=== PATIENT | female | born 1945 | race Caucasian/White ===

== ENCOUNTER 2018-04-14 23:16 | Inpatient (IN) ==
[2018-04-15 01:26] LABS: Basophils % 0.5 % (0.0-0.8); Eosinophils % 0.3 % (0.00-10.9); Hemoglobin 11.7 GM/DL (12.0-16.0); Immature Granulocytes % 0.6 %; Immature Granulocytes Absolute 0.04 #; Lymphocytes # 0.8 10*3/uL (1.4-4.0); Mean Corpuscular HGB Conc 32.5 GM/DL (32-36); Mean Corpuscular Hemoglobin 30 PG (27-34); Mean Corpuscular Volume 92.3 FL (87-102); Mean Platelet Volume 11.3 FL (9.6-12.0); Monocytes # 0.6 10*3/uL (0.11-0.8); Monocytes % 9.5 % (1.7-12.7); Neutrophils # 4.9 10*3/uL (1.4-7.4); Neutrophils % 76.1 % (38.7-73.9); Platelet Count 103 T/CUMM (130-400); Red Cell Distribution Width 14.6 % (9.3-17.3); White Blood Count 6.4 T/CUMM (4-12)
[2018-04-15] MEDS ORDERED: MORPHINE 4 MG/1 ML VIAL IV STA (01:28)
[2018-04-15] MEDS ORDERED: ONDANSETRON 4 MG/2 ML VIAL IV ONE (01:28)
[2018-04-15 01:50] LABS: Albumin 2.6 G/DL (3.4-5.0); Bilirubin,Total 1.1 MG/DL (0.2-1.0); Osmolality,Calculated 272.8 MOS/KG (273-304); Potassium 3.6 MMOL/L (3.5-5.1); Total Protein 7.6 G/DL (6.4-8.3)
[2018-04-15] MEDS ORDERED: NICOTINE 21 MG/24 HR PATCH TRANSDERM PRN (02:22)
[2018-04-15] MEDS ORDERED: ACETAMINOPHEN 325 MG TABLET PO PRN (02:22)
[2018-04-15] MEDS ORDERED: diphenhydrAMINE CAP 25 MG CAPSULE PO PRN (02:22)
[2018-04-15] MEDS ORDERED: ONDANSETRON 4 MG/2 ML VIAL IV PRN ×2 (02:22→12:52)
[2018-04-15] MEDS: MORPHINE 4 MG/1 ML VIAL IV PRN ×3 (02:57→09:57)
[2018-04-15] MEDS ORDERED: ceFAZolin 1,000 MG in SYRINGE 1 EACH IV ONE (06:31)
[2018-04-15 06:54] LABS: Basophils % 0.5 % (0.0-0.8); Eosinophils % 0.3 % (0.00-10.9); Hematocrit 34.9 VOL% (35.7-47.0); Hemoglobin 11.2 GM/DL (12.0-16.0); Immature Granulocytes % 0.5 %; Immature Granulocytes Absolute 0.03 #; Lymphocytes # 0.9 10*3/uL (1.4-4.0); Lymphocytes % 14.4 % (21.3-54.2); Mean Corpuscular HGB Conc 32.1 GM/DL (32-36); Mean Corpuscular Hemoglobin 30 PG (27-34); Mean Corpuscular Volume 91.8 FL (87-102); Mean Platelet Volume 11.1 FL (9.6-12.0); Monocytes # 0.7 10*3/uL (0.11-0.8); Monocytes % 10.3 % (1.7-12.7); Neutrophils # 4.7 10*3/uL (1.4-7.4); Red Cell Distribution Width 14.6 % (9.3-17.3); White Blood Count 6.4 T/CUMM (4-12)
[2018-04-15 06:59] LABS: Platelet Count 90 T/CUMM (130-400)
[2018-04-15 07:03] LABS: INR 1.1; PT Patient Result 11.6 SECS; Partial Thromboplastin Time 27.4 SECS (0-40)
[2018-04-15 07:17] LABS: Hypochromasia 1+; Ovalocytes Slight; Platelet Estimate Decreased
[2018-04-15] MEDS ORDERED: TUBERCULIN SKIN TEST 0.1 ML SYRINGE INTRADERM ONE (11:00)
[2018-04-15] MEDS ORDERED: DEXTROSE 50% 25 GM/50 ML VIAL IV PRN (11:27)
[2018-04-15] MEDS ORDERED: GLUCAGON 1 MG VIAL IM PRN (11:27)
[2018-04-15] MEDS ORDERED: BACITRACIN OINT 0.9 GM PACK TOP ONE (11:56)
[2018-04-15] MEDS: MEPERIDINE 25 MG/1 ML VIAL IV PRN ×2 (12:30→12:40)
[2018-04-15] MEDS ORDERED: SEVOFLURANE 1 UNIT/15 MINUTE INH ONE (12:33)
[2018-04-15] MEDS ORDERED: fentaNYL 100 MCG/2 ML VIAL ONE (12:33)
[2018-04-15] MEDS ORDERED: PROPOFOL 200 MG/20 ML VIAL IV ONE (12:33)
[2018-04-15] MEDS ORDERED: PHENYLEPHRINE 10 MG/1 ML VIAL IV ONE (12:34)
[2018-04-15] MEDS ORDERED: TRANEXAMIC ACID 1,000 MG/10 ML VIAL ONE (12:34)
[2018-04-15] MEDS ORDERED: NEOSTIGMINE 10 MG/10 ML VIAL ONE (12:34)
[2018-04-15] MEDS ORDERED: ROCURONIUM 100 MG/10 ML VIAL IV ONE (12:34)
[2018-04-15] MEDS ORDERED: MEPERIDINE 25 MG/1 ML VIAL ONE ×2 (12:34→12:41)
[2018-04-15] MEDS ORDERED: GLYCOPYRROLATE 0.4 MG/2 ML VIAL ONE (12:34)
[2018-04-15] MEDS ORDERED: ONDANSETRON 4 MG/2 ML VIAL ONE (12:34)
[2018-04-15] MEDS ORDERED: PROMETHAZINE 25 MG/1 ML VIAL ONE (12:42)
[2018-04-15] MEDS ORDERED: HYDROmorphone 2 MG/1 ML VIAL ONE (12:42)
[2018-04-15] MEDS ORDERED: PROMETHAZINE INJ 25 MG in SODIUM CHLORIDE 0.9% 50 ML IV PRN (12:52)
[2018-04-15] MEDS ORDERED: HYDROmorphone 2 MG/1 ML VIAL IV PRN (12:52)
[2018-04-15] MEDS: INSULIN LISPRO 100 UNIT/ML SUBCUT SCH ×3 (13:08→21:03)
[2018-04-15] MEDS: KETOROLAC 15 MG/1 ML VIAL IV SCH ×2 (13:09→18:03)
[2018-04-15] MEDS: LACTATED RINGERS 1,000 ML IV SCH ×3 (13:09→23:20)
[2018-04-15] MEDS: ceFAZolin 1,000 MG in SYRINGE 1 EACH IV SCH (15:38)
[2018-04-15 18:29] LABS: Apearance,Urine Slightly Hazy (Clear); Bacteria,Urine Moderate /HPF (Few); Bilirubin,Urine Negative (Negative); Blood, Urine Large mg/dL (Negative); Glucose,Urine (UA) Negative (Negative); Ketones,Urine 5 mg/dL (Negative); Mucus,Urine Many /LPF (Occasional); Nitrite,Urine Positive (Negative); Protein,Urine 30 MG/DL; RBC,Urine 169 /HPF (0-4); Squamous Epithelial Cell,Urine Occasional /HPF (0-10); Urine Color Dark yellow (Yellow); Urine Specific Gravity 1.021 (1.001-1.035); WBC,Urine 40 /HPF (0-6)
[2018-04-15] MEDS: DOCUSATE SODIUM 100 MG CAPSULE PO SCH (20:58)
[2018-04-16] MEDS ORDERED: ceFAZolin 1,000 MG in SYRINGE 1 EACH IV SCH (01:00)
[2018-04-16] MEDS: KETOROLAC 15 MG/1 ML VIAL IV SCH ×2 (01:06→06:50)
[2018-04-16] MEDS: ceFAZolin 1,000 MG in SYRINGE 1 EACH IV SCH (01:09)
[2018-04-16] MEDS: LACTATED RINGERS 1,000 ML IV SCH (04:28)
[2018-04-16 06:49] LABS: Basophils % 0.4 % (0.0-0.8); Eosinophils # 0.2 10*3/uL (0.0-0.87); Eosinophils % 2.3 % (0.00-10.9); Hematocrit 32.3 VOL% (35.7-47.0); Hemoglobin 10.4 GM/DL (12.0-16.0); Immature Granulocytes % 0.6 %; Immature Granulocytes Absolute 0.04 #; Lymphocytes # 0.9 10*3/uL (1.4-4.0); Lymphocytes % 13.8 % (21.3-54.2); Mean Corpuscular HGB Conc 32.2 GM/DL (32-36); Mean Corpuscular Hemoglobin 30 PG (27-34); Mean Corpuscular Volume 92.3 FL (87-102); Mean Platelet Volume 11.7 FL (9.6-12.0); Monocytes # 0.6 10*3/uL (0.11-0.8); Monocytes % 9.3 % (1.7-12.7); Neutrophils % 73.6 % (38.7-73.9); Red Cell Distribution Width 14.8 % (9.3-17.3); White Blood Count 6.8 T/CUMM (4-12)
[2018-04-16 06:53] LABS: Platelet Count 71 T/CUMM (130-400)
[2018-04-16 07:19] LABS: Calcium 8.6 MG/DL (8.5-10.1); Osmolality,Calculated 277.5 MOS/KG (273-304); Potassium 3.6 MMOL/L (3.5-5.1)
[2018-04-16 07:38] LABS: Hypochromasia 1+; Ovalocytes Slight; Platelet Estimate Decreased
[2018-04-16] MEDS ORDERED: DEXTROSE 50% 25 GM/50 ML VIAL IV PRN (08:26)
[2018-04-16] MEDS ORDERED: GLUCAGON 1 MG VIAL IM PRN (08:26)
[2018-04-16] MEDS ORDERED: DEXTROSE 50% 25 GM/50 ML SYRINGE IV PRN (08:30)
[2018-04-16] MEDS: INSULIN LISPRO 100 UNIT/ML SUBCUT SCH ×4 (09:12→20:56)
[2018-04-16] MEDS: DOCUSATE SODIUM 100 MG CAPSULE PO SCH ×2 (09:12→20:56)
[2018-04-16] MEDS: oxyCODONE IR 5 MG TABLET PO PRN ×3 (09:52→18:01)
[2018-04-16] MEDS: metFORMIN 500 MG TABLET PO SCH (10:30)
[2018-04-16] MEDS: MORPHINE 4 MG/1 ML VIAL IV PRN (12:39)
[2018-04-17] MEDS: oxyCODONE IR 5 MG TABLET PO PRN ×3 (05:11→15:31)
[2018-04-17 05:14] LABS: Basophils % 0.4 % (0.0-0.8); Eosinophils # 0.2 10*3/uL (0.0-0.87); Eosinophils % 2.6 % (0.00-10.9); Hematocrit 31.5 VOL% (35.7-47.0); Hemoglobin 10.2 GM/DL (12.0-16.0); Immature Granulocytes % 0.9 %; Immature Granulocytes Absolute 0.06 #; Lymphocytes # 0.8 10*3/uL (1.4-4.0); Lymphocytes % 11.6 % (21.3-54.2); Mean Corpuscular HGB Conc 32.4 GM/DL (32-36); Mean Corpuscular Hemoglobin 30 PG (27-34); Mean Corpuscular Volume 92.1 FL (87-102); Mean Platelet Volume 11.9 FL (9.6-12.0); Monocytes # 0.8 10*3/uL (0.11-0.8); Monocytes % 10.9 % (1.7-12.7); Neutrophils # 5.1 10*3/uL (1.4-7.4); Neutrophils % 73.6 % (38.7-73.9); Platelet Count 70 T/CUMM (130-400); Red Blood Count 3.42 MC/CUMM (3.8-5.5); Red Cell Distribution Width 14.5 % (9.3-17.3); White Blood Count 6.9 T/CUMM (4-12)
[2018-04-17 06:04] LABS: Platelet Estimate Decreased; Polychromasia Few
[2018-04-17] MEDS: INSULIN LISPRO 100 UNIT/ML SUBCUT SCH ×4 (07:06→20:49)
[2018-04-17] MEDS: DOCUSATE SODIUM 100 MG CAPSULE PO SCH ×2 (09:23→20:17)
[2018-04-17] MEDS: MAGNESIUM HYDROXIDE SUSP 30 ML UDCUP PO PRN (09:25)
[2018-04-17] MEDS: metFORMIN 500 MG TABLET PO SCH (09:33)
[2018-04-17] MEDS: MORPHINE 4 MG/1 ML VIAL IV PRN ×2 (18:31→23:28)
[2018-04-18] MEDS: MORPHINE 4 MG/1 ML VIAL IV PRN (04:40)
[2018-04-18 06:18] LABS: Basophils % 0.4 % (0.0-0.8); Eosinophils # 0.2 10*3/uL (0.0-0.87); Eosinophils % 2.7 % (0.00-10.9); Hematocrit 32.3 VOL% (35.7-47.0); Hemoglobin 10.3 GM/DL (12.0-16.0); Immature Granulocytes % 0.5 %; Immature Granulocytes Absolute 0.03 #; Lymphocytes # 0.8 10*3/uL (1.4-4.0); Mean Corpuscular HGB Conc 31.9 GM/DL (32-36); Mean Corpuscular Hemoglobin 30 PG (27-34); Mean Corpuscular Volume 93.1 FL (87-102); Mean Platelet Volume 11.1 FL (9.6-12.0); Monocytes # 0.9 10*3/uL (0.11-0.8); Neutrophils # 3.8 10*3/uL (1.4-7.4); Neutrophils % 67.4 % (38.7-73.9); Red Blood Count 3.47 MC/CUMM (3.8-5.5); Red Cell Distribution Width 14.2 % (9.3-17.3); White Blood Count 5.7 T/CUMM (4-12)
[2018-04-18 06:26] LABS: Platelet Count 81 T/CUMM (130-400)
[2018-04-18 06:34] LABS: Hypochromasia 1+; Microcytosis Slight
[2018-04-18 06:35] LABS: Platelet Estimate Decreased
[2018-04-18 06:44] LABS: Calcium 7.9 MG/DL (8.5-10.1); Potassium 3.8 MMOL/L (3.5-5.1)
[2018-04-18] MEDS: INSULIN LISPRO 100 UNIT/ML SUBCUT SCH ×4 (07:30→20:56)
[2018-04-18] MEDS: MAGNESIUM HYDROXIDE SUSP 30 ML UDCUP PO PRN (08:49)
[2018-04-18] MEDS: metFORMIN 500 MG TABLET PO SCH (08:49)
[2018-04-18] MEDS: DOCUSATE SODIUM 100 MG CAPSULE PO SCH ×2 (08:49→22:07)
[2018-04-18] MEDS: oxyCODONE IR 5 MG TABLET PO PRN ×2 (11:51→19:50)
[2018-04-19] MEDS: INSULIN LISPRO 100 UNIT/ML SUBCUT SCH ×4 (07:12→21:28)
[2018-04-19] MEDS: oxyCODONE IR 5 MG TABLET PO PRN ×3 (08:34→18:22)
[2018-04-19] MEDS: DOCUSATE SODIUM 100 MG CAPSULE PO SCH ×2 (08:34→21:28)
[2018-04-19] MEDS: metFORMIN 500 MG TABLET PO SCH (08:34)
[2018-04-20] MEDS: oxyCODONE IR 5 MG TABLET PO PRN ×3 (02:18→12:20)
[2018-04-20] MEDS: INSULIN LISPRO 100 UNIT/ML SUBCUT SCH ×2 (07:21→11:37)
[2018-04-20] MEDS: DOCUSATE SODIUM 100 MG CAPSULE PO SCH (08:42)
[2018-04-20] MEDS: metFORMIN 500 MG TABLET PO SCH (08:42)
[2018-04-20 11:49] VITALS: BP 108/63
== END 2018-04-20 12:52 | disposition swing bed (61) | DRG 481 ==
LOC: EDBD → EDUNIT# → N.ED 23:16 → N.EDINP 04-15 02:22 → SUATTDRO 04-15 02:22 → N.3E 04-15 03:14
PROVIDERS: ADMIT Internal Medicine; ATTEND Internal Medicine

== ENCOUNTER 2018-05-03 14:38 | Inpatient (IN) ==
[2018-05-03] MEDS ORDERED: LEVOFLOXACIN INJ 750 MG in PREMIX 1 EACH IV STA (15:17)
[2018-05-03] MEDS ORDERED: PANTOPRAZOLE 40 MG VIAL IV STA (15:17)
[2018-05-03] MEDS ORDERED: SODIUM CHLORIDE 0.9% 1,000 ML IV STA (15:17)
[2018-05-03] MEDS ORDERED: ONDANSETRON 4 MG/2 ML VIAL IV STA ×2 (15:17→17:34)
[2018-05-03 15:45] LABS: Basophils % 0.1 % (0.0-0.8); Hematocrit 34.8 VOL% (35.7-47.0); Hemoglobin 10.9 GM/DL (12.0-16.0); Immature Granulocytes % 3.5 %; Immature Granulocytes Absolute 0.62 #; Lymphocytes # 0.6 10*3/uL (1.4-4.0); Lymphocytes % 3.4 % (21.3-54.2); Mean Corpuscular HGB Conc 31.3 GM/DL (32-36); Mean Corpuscular Hemoglobin 30 PG (27-34); Mean Corpuscular Volume 94.3 FL (87-102); Mean Platelet Volume 11.5 FL (9.6-12.0); Monocytes # 1.9 10*3/uL (0.11-0.8); Monocytes % 10.9 % (1.7-12.7); Neutrophils # 14.5 10*3/uL (1.4-7.4); Neutrophils % 82.1 % (38.7-73.9); Platelet Count 124 T/CUMM (130-400); Red Blood Count 3.69 MC/CUMM (3.8-5.5); Red Cell Distribution Width 15.5 % (9.3-17.3); White Blood Count 17.7 T/CUMM (4-12)
[2018-05-03 16:06] LABS: Alanine Aminotransferase 21 U/L (13-56); Albumin 2.1 G/DL (3.4-5.0); Alkaline Phosphatase 211 U/L (45-117); Amylase 15 U/L (25-115); Aspartate Amino Transferase 55 U/L (0-37); Blood Urea Nitrogen 23 MG/DL (7-18); Calcium 8.5 MG/DL (8.5-10.1); Glucose 120 MG/DL (74-106); Osmolality,Calculated 268.5 MOS/KG (273-304); Potassium 4.4 MMOL/L (3.5-5.1); Sodium 132 MMOL/L (136-145); Total Protein 7.5 G/DL (6.4-8.3); Troponin I < 0.015 NG/ML (0.00-0.045)
[2018-05-03 16:33] LABS: Lymphocytes 7 % (20-55); Segmented Neutrophils 87 % (50-85); Total Cells Counted 100
[2018-05-03 16:40] LABS: Macrocytosis 1+; Microcytosis 1+; Platelet Estimate Decreased
[2018-05-03 16:40] LABS: Apearance,Urine CLEAR (Clear); Bacteria,Urine Many /HPF (Few); Bilirubin,Urine Negative (Negative); Blood, Urine Negative (Negative); Glucose,Urine (UA) Negative (Negative); Ketones,Urine Negative (Negative); Mucus,Urine Occasional /LPF (Occasional); Nitrite,Urine Positive (Negative); Protein,Urine Negative; Squamous Epithelial Cell,Urine Occasional /HPF (0-10); Urine Specific Gravity 1.015 (1.001-1.035); WBC,Urine 4 /HPF (0-6)
[2018-05-03 16:41] LABS: Anisocytosis 1+
[2018-05-03 16:42] LABS: Urine Color Dark yellow (Yellow)
[2018-05-03] MEDS ORDERED: VANCOMYCIN INJ 1,000 MG in SODIUM CHLORIDE 0.9% 250 ML IV STA (17:26)
[2018-05-03] MEDS ORDERED: fentaNYL 100 MCG/2 ML VIAL IV STA (17:34)
[2018-05-03] MEDS ORDERED: DOCUSATE SODIUM 100 MG CAPSULE PO PRN (19:28)
[2018-05-03] MEDS: SODIUM CHLORIDE 0.9% 1,000 ML IV SCH (20:38)
[2018-05-03] MEDS: ENOXAPARIN 40 MG/0.4 ML SYRINGE SUBCUT SCH (21:19)
[2018-05-03] MEDS: ACETAMINOPHEN 325 MG TABLET PO PRN (21:49)
[2018-05-04] MEDS ORDERED: SODIUM CHLORIDE 0.9% 500 ML IV STA (01:07)
[2018-05-04] MEDS ORDERED: NOREPINEPHRINE 8 MG in SODIUM CHLORIDE 0.9% 242 ML IV PRN (02:29)
[2018-05-04] MEDS ORDERED: NOREPINEPHRINE 4 MG/4 ML VIAL IV ONE (02:34)
[2018-05-04 04:47] LABS: Basophils % 0.2 % (0.0-0.8); Hematocrit 32.4 VOL% (35.7-47.0); Hemoglobin 10.3 GM/DL (12.0-16.0); Immature Granulocytes % 5.9 %; Immature Granulocytes Absolute 1.03 #; Lymphocytes # 0.6 10*3/uL (1.4-4.0); Lymphocytes % 3.6 % (21.3-54.2); Mean Corpuscular HGB Conc 31.8 GM/DL (32-36); Mean Corpuscular Hemoglobin 30 PG (27-34); Mean Corpuscular Volume 93.9 FL (87-102); Mean Platelet Volume 11.1 FL (9.6-12.0); Monocytes # 1.8 10*3/uL (0.11-0.8); Monocytes % 10.3 % (1.7-12.7); Neutrophils # 13.9 10*3/uL (1.4-7.4); Platelet Count 121 T/CUMM (130-400); Red Blood Count 3.45 MC/CUMM (3.8-5.5); Red Cell Distribution Width 15.4 % (9.3-17.3); White Blood Count 17.4 T/CUMM (4-12)
[2018-05-04 05:10] LABS: Calcium 7.9 MG/DL (8.5-10.1); Osmolality,Calculated 270.2 MOS/KG (273-304); Potassium 4.4 MMOL/L (3.5-5.1)
[2018-05-04 05:30] LABS: Lymphocytes 7 % (20-55); Platelet Estimate Adequate; Segmented Neutrophils 89 % (50-85); Total Cells Counted 100
[2018-05-04 05:31] LABS: Polychromasia Few
[2018-05-04] MEDS ORDERED: DEXTROSE 50% 25 GM/50 ML VIAL IV STA (05:58)
[2018-05-04] MEDS ORDERED: DEXTROSE 50% 25 GM/50 ML SYRINGE IV ONE (06:00)
[2018-05-04] MEDS: ACETAMINOPHEN 325 MG TABLET PO PRN ×2 (06:20→19:55)
[2018-05-04] MEDS: SODIUM CHLORIDE 0.9% 1,000 ML IV SCH ×3 (09:27→22:07)
[2018-05-04] MEDS: PANTOPRAZOLE 40 MG TABLET PO SCH (09:27)
[2018-05-04] MEDS ORDERED: SODIUM CHLORIDE 0.9% 500 ML IV ONE (10:43)
[2018-05-04] MEDS: cefTRIAXone 1,000 MG in SYRINGE 1 EACH IV SCH (11:01)
[2018-05-04] MEDS: LEVOFLOXACIN INJ 500 MG in PREMIX 1 EACH IV SCH (16:21)
[2018-05-04] MEDS ORDERED: ONDANSETRON 4 MG/2 ML VIAL ONE (19:51)
[2018-05-04] MEDS ORDERED: METOPROLOL TARTRATE 5 MG/5 ML VIAL IV ONE (19:57)
[2018-05-04] MEDS: ONDANSETRON 4 MG/2 ML VIAL IV PRN (20:21)
[2018-05-04] MEDS: ENOXAPARIN 40 MG/0.4 ML SYRINGE SUBCUT SCH (22:11)
[2018-05-05] MEDS: ACETAMINOPHEN 325 MG TABLET PO PRN (01:05)
[2018-05-05 04:36] LABS: Basophils % 0.2 % (0.0-0.8); Hematocrit 30.3 VOL% (35.7-47.0); Hemoglobin 9.6 GM/DL (12.0-16.0); Immature Granulocytes % 5.3 %; Immature Granulocytes Absolute 0.88 #; Lymphocytes # 0.6 10*3/uL (1.4-4.0); Lymphocytes % 3.4 % (21.3-54.2); Mean Corpuscular HGB Conc 31.7 GM/DL (32-36); Mean Corpuscular Hemoglobin 30 PG (27-34); Mean Corpuscular Volume 93.5 FL (87-102); Mean Platelet Volume 10.6 FL (9.6-12.0); Monocytes # 1.9 10*3/uL (0.11-0.8); Monocytes % 11.5 % (1.7-12.7); Neutrophils # 13.2 10*3/uL (1.4-7.4); Neutrophils % 79.6 % (38.7-73.9); Platelet Count 106 T/CUMM (130-400); Red Blood Count 3.24 MC/CUMM (3.8-5.5); Red Cell Distribution Width 15.4 % (9.3-17.3); White Blood Count 16.6 T/CUMM (4-12)
[2018-05-05 04:55] LABS: Albumin 1.5 G/DL (3.4-5.0); Bilirubin,Total 2.8 MG/DL (0.2-1.0); Calcium 7.6 MG/DL (8.5-10.1); Potassium 3.9 MMOL/L (3.5-5.1)
[2018-05-05] MEDS: SODIUM CHLORIDE 0.9% 1,000 ML IV SCH (05:04)
[2018-05-05 05:10] LABS: Band Neutrophils 6 % (0-10); Hypochromasia 1+; Lymphocytes 4 % (20-55); Ovalocytes Slight; Platelet Estimate Decreased; Segmented Neutrophils 83 % (50-85); Total Cells Counted 100
[2018-05-05] MEDS ORDERED: MAGNESIUM SULF RIDER 2 GM in PREMIX 1 EACH IV PRN (08:32)
[2018-05-05] MEDS ORDERED: MAGNESIUM SULF RIDER 4 GM in PREMIX 1 EACH IV PRN (08:32)
[2018-05-05] MEDS: PANTOPRAZOLE 40 MG TABLET PO SCH (08:33)
[2018-05-05] MEDS: LACTATED RINGERS 1,000 ML IV SCH (09:14)
[2018-05-05] MEDS: CALCIUM (CARBONATE) 600 MG TABLET PO SCH (10:36)
[2018-05-05] MEDS: MULTIVITAMIN (CENTRUM) TABLET PO SCH (10:36)
[2018-05-05] MEDS: ASPIRIN 325 MG TABLET PO SCH (10:36)
[2018-05-05] MEDS: OMEGA 3 ACID ETHYL ESTERS 1 GM CAPSULE PO SCH (10:36)
[2018-05-05] MEDS: MAGNESIUM OXIDE 400 MG TABLET PO SCH (10:36)
[2018-05-05] MEDS: ASCORBIC ACID 500 MG TABLET PO SCH (10:37)
[2018-05-05] MEDS: METOPROLOL SUCCINATE XL 50 MG TABLET PO SCH (10:37)
[2018-05-05] MEDS: cefTRIAXone 1,000 MG in SYRINGE 1 EACH IV SCH (10:37)
[2018-05-05] MEDS: ONDANSETRON 4 MG/2 ML VIAL IV PRN (17:57)
[2018-05-05] MEDS: LEVOFLOXACIN INJ 500 MG in PREMIX 1 EACH IV SCH (17:58)
[2018-05-05] MEDS: ENOXAPARIN 40 MG/0.4 ML SYRINGE SUBCUT SCH (20:59)
[2018-05-06] MEDS: oxyCODONE IR 5 MG TABLET PO PRN ×3 (01:21→21:58)
[2018-05-06] MEDS: LACTATED RINGERS 1,000 ML IV SCH ×2 (01:23→22:06)
[2018-05-06] MEDS: ALBUTEROL/IPRATROPIUM 3 ML NEB RESP TX PRN (01:53)
[2018-05-06 04:46] LABS: Basophils # 0.1 10*3/uL (0.0-0.2); Basophils % 0.3 % (0.0-0.8); Eosinophils # 0.1 10*3/uL (0.0-0.87); Eosinophils % 0.5 % (0.00-10.9); Hemoglobin 10.3 GM/DL (12.0-16.0); Immature Granulocytes % 0.7 %; Immature Granulocytes Absolute 0.12 #; Lymphocytes # 0.8 10*3/uL (1.4-4.0); Lymphocytes % 4.4 % (21.3-54.2); Mean Corpuscular HGB Conc 32.2 GM/DL (32-36); Mean Corpuscular Hemoglobin 30 PG (27-34); Mean Corpuscular Volume 92.5 FL (87-102); Mean Platelet Volume 11.7 FL (9.6-12.0); Monocytes # 1.7 10*3/uL (0.11-0.8); Monocytes % 9.9 % (1.7-12.7); Neutrophils # 14.4 10*3/uL (1.4-7.4); Neutrophils % 84.2 % (38.7-73.9); Platelet Count 128 T/CUMM (130-400); Red Blood Count 3.46 MC/CUMM (3.8-5.5); Red Cell Distribution Width 15.5 % (9.3-17.3); White Blood Count 17.1 T/CUMM (4-12)
[2018-05-06 05:05] LABS: Albumin 1.4 G/DL (3.4-5.0); Calcium 8.2 MG/DL (8.5-10.1); Osmolality,Calculated 272.2 MOS/KG (273-304); Potassium 4.6 MMOL/L (3.5-5.1); Total Protein 6.1 G/DL (6.4-8.3)
[2018-05-06 05:13] LABS: Band Neutrophils 5 % (0-10); Eosinophils 1 % (0-10); Hypochromasia 1+; Lymphocytes 6 % (20-55); Ovalocytes Slight; Segmented Neutrophils 80 % (50-85); Total Cells Counted 100
[2018-05-06] MEDS: PANTOPRAZOLE 20 MG TABLET PO SCH (06:21)
[2018-05-06] MEDS: LEVOTHYROXINE 100 MCG TABLET PO SCH (06:21)
[2018-05-06] MEDS: PIPERACILLIN/TAZOBACTAM 3,375 MG in SODIUM CHLORIDE 0.9% 100 ML IV SCH ×2 (09:27→15:42)
[2018-05-06] MEDS: MAGNESIUM OXIDE 400 MG TABLET PO SCH (09:29)
[2018-05-06] MEDS: OMEGA 3 ACID ETHYL ESTERS 1 GM CAPSULE PO SCH (09:29)
[2018-05-06] MEDS: ASPIRIN 325 MG TABLET PO SCH (09:29)
[2018-05-06] MEDS: METOPROLOL SUCCINATE XL 50 MG TABLET PO SCH (09:29)
[2018-05-06] MEDS: MULTIVITAMIN (CENTRUM) TABLET PO SCH (09:29)
[2018-05-06] MEDS: CALCIUM (CARBONATE) 600 MG TABLET PO SCH (09:29)
[2018-05-06] MEDS: ASCORBIC ACID 500 MG TABLET PO SCH (09:29)
[2018-05-06] MEDS ORDERED: DEXTROSE 50% 25 GM/50 ML VIAL IV PRN (10:48)
[2018-05-06] MEDS ORDERED: GLUCAGON 1 MG VIAL IM PRN ×2 (10:48)
[2018-05-06] MEDS ORDERED: DEXTROSE 50% 25 GM/50 ML SYRINGE IV PRN (10:48)
[2018-05-06] MEDS: INSULIN REGULAR 100 UNIT/ML SUBCUT SCH ×3 (15:00→22:06)
[2018-05-06] MEDS: ENOXAPARIN 40 MG/0.4 ML SYRINGE SUBCUT SCH (21:58)
[2018-05-06] MEDS: LEVOFLOXACIN INJ 500 MG in PREMIX 1 EACH IV SCH (21:59)
[2018-05-07] MEDS: ALBUTEROL/IPRATROPIUM 3 ML NEB RESP TX PRN ×2 (00:13→08:00)
[2018-05-07] MEDS: PIPERACILLIN/TAZOBACTAM 3,375 MG in SODIUM CHLORIDE 0.9% 100 ML IV SCH ×4 (00:54→22:35)
[2018-05-07] MEDS: LACTATED RINGERS 1,000 ML IV SCH (03:19)
[2018-05-07 05:19] LABS: Basophils % 0.2 % (0.0-0.8); Eosinophils # 0.1 10*3/uL (0.0-0.87); Eosinophils % 0.4 % (0.00-10.9); Hematocrit 31.2 VOL% (35.7-47.0); Hemoglobin 9.9 GM/DL (12.0-16.0); Immature Granulocytes % 1.3 %; Immature Granulocytes Absolute 0.21 #; Lymphocytes % 6.5 % (21.3-54.2); Mean Corpuscular HGB Conc 31.7 GM/DL (32-36); Mean Corpuscular Hemoglobin 29 PG (27-34); Mean Corpuscular Volume 91.8 FL (87-102); Mean Platelet Volume 11.3 FL (9.6-12.0); Monocytes # 2.4 10*3/uL (0.11-0.8); Monocytes % 15.1 % (1.7-12.7); Neutrophils # 12.1 10*3/uL (1.4-7.4); Neutrophils % 76.5 % (38.7-73.9); Platelet Count 121 T/CUMM (130-400); Red Cell Distribution Width 15.7 % (9.3-17.3); White Blood Count 15.8 T/CUMM (4-12)
[2018-05-07 05:50] LABS: Albumin 1.3 G/DL (3.4-5.0); Bilirubin,Total 2.1 MG/DL (0.2-1.0); Calcium 8.4 MG/DL (8.5-10.1); Osmolality,Calculated 273.1 MOS/KG (273-304); Potassium 4.7 MMOL/L (3.5-5.1)
[2018-05-07] MEDS: LEVOTHYROXINE 100 MCG TABLET PO SCH (06:30)
[2018-05-07] MEDS: PANTOPRAZOLE 20 MG TABLET PO SCH (06:31)
[2018-05-07 06:39] LABS: Band Neutrophils 2 % (0-10); Eosinophils 1 % (0-10); Hypochromasia 2+; Lymphocytes 9 % (20-55); Platelet Estimate Decreased; Segmented Neutrophils 75 % (50-85); Total Cells Counted 100
[2018-05-07] MEDS: INSULIN REGULAR 100 UNIT/ML SUBCUT SCH ×4 (08:06→20:37)
[2018-05-07] MEDS: OMEGA 3 ACID ETHYL ESTERS 1 GM CAPSULE PO SCH (08:39)
[2018-05-07] MEDS: MULTIVITAMIN (CENTRUM) TABLET PO SCH (08:39)
[2018-05-07] MEDS: CALCIUM (CARBONATE) 600 MG TABLET PO SCH (08:39)
[2018-05-07] MEDS: MAGNESIUM OXIDE 400 MG TABLET PO SCH (08:39)
[2018-05-07] MEDS: ASPIRIN 325 MG TABLET PO SCH (08:39)
[2018-05-07] MEDS: ASCORBIC ACID 500 MG TABLET PO SCH (08:39)
[2018-05-07] MEDS: METOPROLOL SUCCINATE XL 50 MG TABLET PO SCH (08:42)
[2018-05-07] MEDS: ACETAMINOPHEN 325 MG TABLET PO PRN (15:50)
[2018-05-07] MEDS: LEVOFLOXACIN INJ 500 MG in PREMIX 1 EACH IV SCH (20:35)
[2018-05-07] MEDS: ENOXAPARIN 40 MG/0.4 ML SYRINGE SUBCUT SCH (20:36)
[2018-05-07] MEDS: guaiFENesin 200 MG/10 ML UDCUP PO PRN (22:34)
[2018-05-08 05:04] LABS: Basophils % 0.2 % (0.0-0.8); Eosinophils # 0.1 10*3/uL (0.0-0.87); Eosinophils % 0.5 % (0.00-10.9); Hematocrit 29.6 VOL% (35.7-47.0); Hemoglobin 9.7 GM/DL (12.0-16.0); Immature Granulocytes % 4.4 %; Immature Granulocytes Absolute 0.74 #; Lymphocytes # 1.3 10*3/uL (1.4-4.0); Lymphocytes % 7.9 % (21.3-54.2); Mean Corpuscular HGB Conc 32.8 GM/DL (32-36); Mean Corpuscular Hemoglobin 30 PG (27-34); Mean Corpuscular Volume 91.1 FL (87-102); Mean Platelet Volume 11.5 FL (9.6-12.0); Monocytes # 1.7 10*3/uL (0.11-0.8); Monocytes % 10.2 % (1.7-12.7); Neutrophils # 12.9 10*3/uL (1.4-7.4); Neutrophils % 76.8 % (38.7-73.9); Platelet Count 115 T/CUMM (130-400); Red Blood Count 3.25 MC/CUMM (3.8-5.5); Red Cell Distribution Width 15.5 % (9.3-17.3); White Blood Count 16.8 T/CUMM (4-12)
[2018-05-08 05:28] LABS: Albumin 1.2 G/DL (3.4-5.0); Bilirubin,Total 2.5 MG/DL (0.2-1.0); Calcium 8.2 MG/DL (8.5-10.1); Osmolality,Calculated 266.5 MOS/KG (273-304); Potassium 4.4 MMOL/L (3.5-5.1); Total Protein 5.9 G/DL (6.4-8.3)
[2018-05-08 06:16] LABS: Band Neutrophils 4 % (0-10); Lymphocytes 4 % (20-55); Segmented Neutrophils 79 % (50-85); Total Cells Counted 100
[2018-05-08] MEDS: LACTATED RINGERS 1,000 ML IV SCH ×3 (06:16→22:16)
[2018-05-08 06:17] LABS: Anisocytosis 1+; Hypochromasia 1+; Ovalocytes 1+; Platelet Estimate Adequate; Target Cells 1+
[2018-05-08] MEDS: LEVOTHYROXINE 100 MCG TABLET PO SCH (06:17)
[2018-05-08] MEDS: PANTOPRAZOLE 20 MG TABLET PO SCH (06:17)
[2018-05-08] MEDS: INSULIN REGULAR 100 UNIT/ML SUBCUT SCH ×4 (08:15→22:14)
[2018-05-08] MEDS: ALBUTEROL/IPRATROPIUM 3 ML NEB RESP TX PRN (09:08)
[2018-05-08] MEDS: PIPERACILLIN/TAZOBACTAM 3,375 MG in SODIUM CHLORIDE 0.9% 100 ML IV SCH ×3 (09:29→17:00)
[2018-05-08] MEDS: MAGNESIUM OXIDE 400 MG TABLET PO SCH (10:17)
[2018-05-08] MEDS: MULTIVITAMIN (CENTRUM) TABLET PO SCH (10:17)
[2018-05-08] MEDS: ASCORBIC ACID 500 MG TABLET PO SCH (10:17)
[2018-05-08] MEDS: CALCIUM (CARBONATE) 600 MG TABLET PO SCH (10:17)
[2018-05-08] MEDS: ASPIRIN 325 MG TABLET PO SCH (10:17)
[2018-05-08] MEDS: OMEGA 3 ACID ETHYL ESTERS 1 GM CAPSULE PO SCH (10:17)
[2018-05-08] MEDS: METOPROLOL SUCCINATE XL 50 MG TABLET PO SCH (10:17)
[2018-05-08] MEDS: guaiFENesin 200 MG/10 ML UDCUP PO PRN (18:25)
[2018-05-08] MEDS: ONDANSETRON 4 MG/2 ML VIAL IV PRN (20:21)
[2018-05-08] MEDS: oxyCODONE IR 5 MG TABLET PO PRN (20:21)
[2018-05-08] MEDS: LEVOFLOXACIN INJ 500 MG in PREMIX 1 EACH IV SCH (20:22)
[2018-05-08] MEDS: ENOXAPARIN 40 MG/0.4 ML SYRINGE SUBCUT SCH (20:30)
[2018-05-09] MEDS: PIPERACILLIN/TAZOBACTAM 3,375 MG in SODIUM CHLORIDE 0.9% 100 ML IV SCH ×3 (01:47→18:38)
[2018-05-09] MEDS: PANTOPRAZOLE 20 MG TABLET PO SCH (06:02)
[2018-05-09] MEDS: LEVOTHYROXINE 100 MCG TABLET PO SCH (06:03)
[2018-05-09] MEDS: INSULIN REGULAR 100 UNIT/ML SUBCUT SCH ×4 (08:41→20:39)
[2018-05-09] MEDS: ASPIRIN 325 MG TABLET PO SCH (10:05)
[2018-05-09] MEDS: CALCIUM (CARBONATE) 600 MG TABLET PO SCH (10:05)
[2018-05-09] MEDS: OMEGA 3 ACID ETHYL ESTERS 1 GM CAPSULE PO SCH (10:05)
[2018-05-09] MEDS: METOPROLOL SUCCINATE XL 50 MG TABLET PO SCH (10:05)
[2018-05-09] MEDS: MAGNESIUM OXIDE 400 MG TABLET PO SCH (10:05)
[2018-05-09] MEDS: MULTIVITAMIN (CENTRUM) TABLET PO SCH (10:05)
[2018-05-09] MEDS: ASCORBIC ACID 500 MG TABLET PO SCH (10:05)
[2018-05-09] MEDS: oxyCODONE IR 5 MG TABLET PO PRN ×3 (10:09→20:33)
[2018-05-09] MEDS: LORazepam 0.5 MG TABLET PO PRN ×2 (12:35→20:32)
[2018-05-09] MEDS: LACTATED RINGERS 1,000 ML IV SCH ×2 (18:38→23:57)
[2018-05-09] MEDS: ONDANSETRON 4 MG/2 ML VIAL IV PRN (20:32)
[2018-05-09] MEDS: ENOXAPARIN 40 MG/0.4 ML SYRINGE SUBCUT SCH (20:36)
[2018-05-09] MEDS: LEVOFLOXACIN INJ 500 MG in PREMIX 1 EACH IV SCH (23:51)
[2018-05-10] MEDS: PIPERACILLIN/TAZOBACTAM 3,375 MG in SODIUM CHLORIDE 0.9% 100 ML IV SCH ×2 (01:02→09:17)
[2018-05-10] MEDS: LEVOTHYROXINE 100 MCG TABLET PO SCH (07:17)
[2018-05-10] MEDS: PANTOPRAZOLE 20 MG TABLET PO SCH (07:17)
[2018-05-10] MEDS: INSULIN REGULAR 100 UNIT/ML SUBCUT SCH ×4 (08:34→20:54)
[2018-05-10] MEDS: METOPROLOL SUCCINATE XL 50 MG TABLET PO SCH (09:16)
[2018-05-10] MEDS: ASCORBIC ACID 500 MG TABLET PO SCH (09:16)
[2018-05-10] MEDS: ASPIRIN 325 MG TABLET PO SCH (09:16)
[2018-05-10] MEDS: OMEGA 3 ACID ETHYL ESTERS 1 GM CAPSULE PO SCH (09:16)
[2018-05-10] MEDS: MULTIVITAMIN (CENTRUM) TABLET PO SCH (09:17)
[2018-05-10] MEDS: MAGNESIUM OXIDE 400 MG TABLET PO SCH (09:17)
[2018-05-10] MEDS: CALCIUM (CARBONATE) 600 MG TABLET PO SCH (09:17)
[2018-05-10] MEDS: LEVOFLOXACIN 750 MG TABLET PO SCH (11:40)
[2018-05-10] MEDS: oxyCODONE IR 5 MG TABLET PO PRN ×2 (12:52→20:54)
[2018-05-10 13:31] LABS: Basophils % 0.2 % (0.0-0.8); Eosinophils # 0.1 10*3/uL (0.0-0.87); Eosinophils % 0.4 % (0.00-10.9); Hematocrit 28.5 VOL% (35.7-47.0); Hemoglobin 9.3 GM/DL (12.0-16.0); Immature Granulocytes % 1.3 %; Immature Granulocytes Absolute 0.27 #; Lymphocytes # 0.8 10*3/uL (1.4-4.0); Lymphocytes % 3.5 % (21.3-54.2); Mean Corpuscular HGB Conc 32.6 GM/DL (32-36); Mean Corpuscular Hemoglobin 30 PG (27-34); Mean Corpuscular Volume 90.8 FL (87-102); Mean Platelet Volume 10.2 FL (9.6-12.0); Monocytes # 1.3 10*3/uL (0.11-0.8); Monocytes % 6.1 % (1.7-12.7); Neutrophils % 88.5 % (38.7-73.9); Platelet Count 140 T/CUMM (130-400); Red Blood Count 3.14 MC/CUMM (3.8-5.5); Red Cell Distribution Width 15.8 % (9.3-17.3); White Blood Count 21.4 T/CUMM (4-12)
[2018-05-10 13:56] LABS: Calcium 7.4 MG/DL (8.5-10.1); Osmolality,Calculated 272.5 MOS/KG (273-304); Potassium 4.7 MMOL/L (3.5-5.1)
[2018-05-10 14:12] LABS: Band Neutrophils 1 % (0-10); Lymphocytes 2 % (20-55); Segmented Neutrophils 91 % (50-85); Total Cells Counted 100
[2018-05-10 14:13] LABS: Platelet Estimate Normal
[2018-05-10] MEDS: LACTATED RINGERS 1,000 ML IV SCH (18:22)
[2018-05-10] MEDS: ENOXAPARIN 40 MG/0.4 ML SYRINGE SUBCUT SCH (20:55)
[2018-05-11] MEDS: LEVOTHYROXINE 100 MCG TABLET PO SCH (07:06)
[2018-05-11] MEDS: PANTOPRAZOLE 20 MG TABLET PO SCH (07:06)
[2018-05-11 07:21] LABS: Basophils % 0.2 % (0.0-0.8); Eosinophils # 0.1 10*3/uL (0.0-0.87); Eosinophils % 0.4 % (0.00-10.9); Hematocrit 27.3 VOL% (35.7-47.0); Hemoglobin 9.1 GM/DL (12.0-16.0); Immature Granulocytes % 1.3 %; Immature Granulocytes Absolute 0.32 #; Lymphocytes # 0.9 10*3/uL (1.4-4.0); Lymphocytes % 3.7 % (21.3-54.2); Mean Corpuscular HGB Conc 33.3 GM/DL (32-36); Mean Corpuscular Hemoglobin 30 PG (27-34); Mean Corpuscular Volume 89.5 FL (87-102); Mean Platelet Volume 10.2 FL (9.6-12.0); Monocytes # 1.5 10*3/uL (0.11-0.8); Monocytes % 6.3 % (1.7-12.7); Neutrophils # 21.3 10*3/uL (1.4-7.4); Neutrophils % 88.1 % (38.7-73.9); Platelet Count 151 T/CUMM (130-400); Red Blood Count 3.05 MC/CUMM (3.8-5.5); Red Cell Distribution Width 15.7 % (9.3-17.3); White Blood Count 24.1 T/CUMM (4-12)
[2018-05-11 07:40] LABS: Band Neutrophils 2 % (0-10); Lymphocytes 4 % (20-55); Segmented Neutrophils 93 % (50-85); Total Cells Counted 100
[2018-05-11 07:41] LABS: Hypochromasia 1+; Microcytosis Slight; Target Cells Slight
[2018-05-11 07:42] LABS: Platelet Estimate Adequate
[2018-05-11 07:49] LABS: Albumin 1.2 G/DL (3.4-5.0); Bilirubin,Total 1.7 MG/DL (0.2-1.0); Calcium 7.6 MG/DL (8.5-10.1); Osmolality,Calculated 268.4 MOS/KG (273-304); Potassium 4.4 MMOL/L (3.5-5.1)
[2018-05-11] MEDS: INSULIN REGULAR 100 UNIT/ML SUBCUT SCH ×2 (08:23→11:26)
[2018-05-11] MEDS: MAGNESIUM OXIDE 400 MG TABLET PO SCH (09:18)
[2018-05-11] MEDS: ASPIRIN 325 MG TABLET PO SCH (09:18)
[2018-05-11] MEDS: METOPROLOL SUCCINATE XL 50 MG TABLET PO SCH (09:18)
[2018-05-11] MEDS: LEVOFLOXACIN 750 MG TABLET PO SCH (09:18)
[2018-05-11] MEDS: MULTIVITAMIN (CENTRUM) TABLET PO SCH (09:18)
[2018-05-11] MEDS: OMEGA 3 ACID ETHYL ESTERS 1 GM CAPSULE PO SCH (09:18)
[2018-05-11] MEDS: ASCORBIC ACID 500 MG TABLET PO SCH (09:18)
[2018-05-11] MEDS: CALCIUM (CARBONATE) 600 MG TABLET PO SCH (09:18)
[2018-05-11] MEDS: oxyCODONE IR 5 MG TABLET PO PRN (09:26)
[2018-05-11] MEDS ORDERED: MAGNESIUM HYDROXIDE SUSP 30 ML UDCUP PO PRN (10:19)
[2018-05-11] MEDS ORDERED: SODIUM PHOSPHATE ENEMA 133 ML BOTTLE RECTAL ONE (10:20)
[2018-05-11] MEDS ORDERED: BISACODYL 5 MG TABLET PO ONE (10:20)
[2018-05-11] MEDS ORDERED: LINACLOTIDE 145 MCG CAPSULE PO SCH (10:30)
[2018-05-11 11:54] VITALS: BP 96/61
== END 2018-05-11 14:50 | disposition swing bed (61) | DRG 872 ==
LOC: EDBD → EDUNIT# → N.ED 14:38 → SUATTDRO 19:28 → N.EDINP 19:28 → N.ICU 05-04 08:00 → N.4E 05-05 21:37
PROVIDERS: ADMIT Phlebology; ATTEND Internal Medicine

== ENCOUNTER 2018-05-13 14:03 | Observation (INO) ==
[2018-05-13] MEDS ORDERED: ONDANSETRON 4 MG/2 ML VIAL IV STA (14:34)
[2018-05-13] MEDS ORDERED: HYDROmorphone 2 MG/1 ML VIAL IV STA (14:34)
[2018-05-13] MEDS ORDERED: LORazepam 2 MG/1 ML VIAL IV PRN (16:15)
[2018-05-13] MEDS ORDERED: LORazepam 1 MG TABLET PO PRN (16:15)
[2018-05-13] MEDS ORDERED: DOCUSATE SODIUM 100 MG CAPSULE PO PRN (16:17)
[2018-05-13] MEDS ORDERED: LORazepam 0.5 MG TABLET PO PRN (16:17)
[2018-05-13] MEDS ORDERED: ACETAMINOPHEN 325 MG TABLET PO PRN (16:17)
[2018-05-13] MEDS: MORPHINE 4 MG/1 ML VIAL IV PRN (17:25)
[2018-05-13] MEDS: POTASSIUM CHLORIDE 10 MEQ TABLET PO SCH (20:34)
[2018-05-13] MEDS: oxyCODONE IR 5 MG TABLET PO PRN (23:38)
[2018-05-14] MEDS: oxyCODONE IR 5 MG TABLET PO PRN ×2 (03:45→10:08)
[2018-05-14] MEDS ORDERED: LEVOTHYROXINE 100 MCG TABLET PO SCH (06:00)
[2018-05-14] MEDS ORDERED: PANTOPRAZOLE 20 MG TABLET PO SCH (06:00)
[2018-05-14] MEDS ORDERED: LINACLOTIDE 145 MCG CAPSULE PO SCH (06:00)
[2018-05-14] MEDS ORDERED: metFORMIN 500 MG TABLET PO SCH (06:30)
[2018-05-14] MEDS ORDERED: OMEGA 3 ACID ETHYL ESTERS 1 GM CAPSULE PO SCH (09:00)
[2018-05-14] MEDS ORDERED: ASPIRIN 325 MG TABLET PO SCH (09:00)
[2018-05-14] MEDS ORDERED: ASCORBIC ACID 500 MG TABLET PO SCH (09:00)
[2018-05-14] MEDS ORDERED: METOPROLOL SUCCINATE XL 50 MG TABLET PO SCH (09:00)
[2018-05-14] MEDS ORDERED: POLYETHYLENE GLYCOL POWDER 17 GM PACK PO SCH (09:00)
[2018-05-14] MEDS ORDERED: MULTIVITAMIN (CENTRUM) TABLET PO SCH (09:00)
[2018-05-14] MEDS ORDERED: MAGNESIUM OXIDE 400 MG TABLET PO SCH (09:00)
[2018-05-14] MEDS ORDERED: FUROSEMIDE 40 MG TABLET PO SCH (09:00)
[2018-05-14] MEDS ORDERED: CALCIUM (CARBONATE) 600 MG TABLET PO SCH (09:00)
[2018-05-14] MEDS ORDERED: LEVOFLOXACIN 750 MG TABLET PO SCH (09:00)
[2018-05-14] MEDS: POTASSIUM CHLORIDE 10 MEQ TABLET PO SCH (10:09)
[2018-05-14 11:18] VITALS: BP 102/54
[2018-05-14] MEDS: MORPHINE 4 MG/1 ML VIAL IV PRN (13:46)
== END 2018-05-14 14:07 | disposition hospice, home (50) ==
LOC: EDUNIT# → N.EDINP 14:03 → N.ED 14:03 → N.3E 17:33
PROVIDERS: ADMIT Hospitalist; ATTEND Hospitalist